=== PATIENT | male | born 1985 ===

== ENCOUNTER 2018-02-15 18:57 | Emergency (ER) | payer SELFPAY ==
[2018-02-15 19:20] VITALS: BP 131/86
--- NOTE | 2018-02-15 19:39 | Emergency Department Report ---
ED ENT HPI - General Chief complaint: Dental/Oral Stated complaint: FACE SWOLLEN Time Seen by Provider: 02/15/18 19:34 Source: patient Mode of arrival: Ambulatory Limitations: No Limitations - History of Present Illness Initial comments: This is a 32-year-old male nontoxic, well nourished in appearance, no acute signs of distress presents to the ED with c/o of left lower toothache 5 weeks. Patient denies following up with a dentist. Patient describes toothache as aching level of 8 out of 10. Patient stated has some facial swelling to left mandible. Patient denies any numbness, tingling, fever, chills, headache, stiff neck, abdominal pain, chest pain, shortness of breath. Patient denies any drug allergies or significant past medical history. MD complaint: tooth pain -: week(s) (5) Location: tooth # 1 - pain here Severity: mild Severity scale (0 -10): 8 Quality: aching Consistency: constant Improves with: none Worsens with: none Context- Dental: history of dental caries, poor dental care Associated Symptoms: gum swelling, toothache. denies: fever, cough, pain with swallowing, sore throat, tinnitus, hearing loss, discharge from ear, rhinorrhea - Related Data Previous Rx's Medication Instructions Recorded Last Taken Type Acetaminophen/Codeine [Tylenol 1 tab PO Q6H PRN #12 tab 02/15/18 Unknown Rx /Codeine # 3 tab] Chlorhexidine Mouthwash [Peridex] 15 ml MM BID #1 bottle 02/15/18 Unknown Rx Clindamycin [Clindamycin CAP] 300 mg PO Q6H 7 Days capsule 02/15/18 Unknown Rx Allergies Allergy/AdvReac Type Severity Reaction Status Date / Time No Known Allergies Allergy Unverified 02/15/18 19:20 ED Dental HPI - General Chief complaint: Dental/Oral Stated complaint: FACE SWOLLEN Time Seen by Provider: 02/15/18 19:34 Source: patient Mode of arrival: Ambulatory Limitations: No Limitations - Related Data Previous Rx's Medication Instructions Recorded Last Taken Type Acetaminophen/Codeine [Tylenol 1 tab PO Q6H PRN #12 tab 02/15/18 Unknown Rx /Codeine # 3 tab] Chlorhexidine Mouthwash [Peridex] 15 ml MM BID #1 bottle 02/15/18 Unknown Rx Clindamycin [Clindamycin CAP] 300 mg PO Q6H 7 Days capsule 02/15/18 Unknown Rx Allergies Allergy/AdvReac Type Severity Reaction Status Date / Time No Known Allergies Allergy Unverified 02/15/18 19:20 ED Review of Systems ROS: Stated complaint: FACE SWOLLEN Other details as noted in HPI Constitutional: denies: chills, fever Eyes: denies: eye pain, eye discharge, vision change ENT: dental pain. denies: ear pain, throat pain Respiratory: denies: cough, shortness of breath, wheezing Cardiovascular: denies: chest pain, palpitations Endocrine: no symptoms reported Gastrointestinal: denies: abdominal pain, nausea, diarrhea Genitourinary: denies: urgency, dysuria Musculoskeletal: denies: back pain, joint swelling, arthralgia Skin: denies: rash, lesions Neurological: denies: headache, weakness, paresthesias Psychiatric: denies: anxiety, depression Hematological/Lymphatic: denies: easy bleeding, easy bruising ED Past Medical Hx - Past Medical History Previous Medical History?: No - Surgical History Additional Surgical History: left hand - Social History Smoking Status: Current Every Day Smoker Substance Use Type: None - Medications Home Medications: Home Medications Medication Instructions Recorded Confirmed Last Taken Type Acetaminophen/Codeine [Tylenol 1 tab PO Q6H PRN #12 tab 02/15/18 Unknown Rx /Codeine # 3 tab] Chlorhexidine Mouthwash [Peridex] 15 ml MM BID #1 bottle 02/15/18 Unknown Rx Clindamycin [Clindamycin CAP] 300 mg PO Q6H 7 Days capsule 02/15/18 Unknown Rx ED Physical Exam - General Limitations: No Limitations General appearance: alert, in no apparent distress - Head Head exam: Present: atraumatic, normocephalic - Eye Eye exam: Present: normal appearance - ENT ENT exam: Present: mucous membranes moist, TM's normal bilaterally - Expanded ENT Exam Expanded Ear exam: Present: normal external inspection Mouth exam: Present: normal external inspection, tongue normal. Absent: drooling, trismus, muffled voice, laceration Teeth exam: Present: dental caries, fractured tooth #, dental tenderness #, gingival enlargement, other (left lower mandible slight swelling with no indruation. Tender to touch. No pus or drainge.) Throat exam: Positive: normal inspection, other (Uvula midline.). Negative: tonsillar erythema, tonsillomegaly, tonsillar exudate, R peritonsillar mass, L peritonsillar mass - Neck Neck exam: Present: normal inspection, full ROM. Absent: tenderness, meningismus, lymphadenopathy - Respiratory Respiratory exam: Present: normal lung sounds bilaterally. Absent: respiratory distress - Cardiovascular Cardiovascular Exam: Present: regular rate, normal rhythm. Absent: systolic murmur, diastolic murmur, rubs, gallop - GI/Abdominal GI/Abdominal exam: Present: soft, normal bowel sounds - Rectal Rectal exam: Present: deferred - Extremities Exam Extremities exam: Present: normal inspection - Back Exam Back exam: Present: normal inspection - Neurological Exam Neurological exam: Present: alert, oriented X3 - Psychiatric Psychiatric exam: Present: normal affect, normal mood - Skin Skin exam: Present: warm, dry, intact, normal color. Absent: rash ED Course Vital Signs 02/15/18 19:17 Temperature 98.8 F Pulse Rate 71 Respiratory 18 Rate Blood Pressure 131/86 O2 Sat by Pulse 97 Oximetry - Reevaluation(s) Reevaluation #1: 02/15/18 19:46 Patient is speaking in full sentences with no signs of distress noted. ED Medical Decision Making - Medical Decision Making This is a 32-year-old male that presents with gingivitis and dental caries. Patient is stable and was examined by me. There is slight swelling to the left lower mandible. I used 18-gauge hypo-with 10 mL syringe and try to aspirate in the right gingival area to make sure this was an abscess and no prominent drainage has been noted. I did give patient clindamycin 600 mg IM in the ED and patient is discharged with clindamycin. He had strict instructions to follow-up with oral maxillary surgeon in 24 hours or if symptoms would worsen to return to emergency room as was possible. Patient is discharged with Tylenol with Codeine, Peridex and Clinda. Patient was instructed not to operate any machinery when taking Tylenol with codeine due to drowsiness. At time of discharge, the patient does not seem toxic or ill in appearance. No acute signs of distress noted. Patient agrees to discharge treatment plan of care. No further questions noted by the patient. Critical care attestation.: If time is entered above; I have spent that time in minutes in the direct care of this critically ill patient, excluding procedure time. ED Disposition Clinical Impression: Dental caries, Gingivitis Disposition: TO HOME OR SELFCARE Is pt being admited?: No Does the pt Need Aspirin: No Condition: Stable Instructions: Dental Caries (ED), Dental Abscess (ED), Gingivitis (ED), Acetaminophen/Codeine (By mouth) Additional Instructions: Follow-up with a oral maxillary surgeon in 24 hours or if symptoms worsen and continue return to emergency room as soon as possible. Do not operate any machinery while taking Tylenol with codeine as this may cause drowsiness. [facility] Address: [id number], [place] [address] Hours: Friday Closed Friday 8AM1PM, 25PM Friday 8AM1PM, 25Friday 8AM1PM, 25PM 8AM1PM, 25PM Friday 7AM2PM Friday Closed Prescriptions: Acetaminophen/Codeine [Tylenol /Codeine # 3 tab] 1 tab PO Q6H PRN #12 tab PRN Reason: Pain , Severe (7-10) Chlorhexidine Mouthwash [Peridex] 15 ml MM BID #1 bottle Clindamycin [Clindamycin CAP] 300 mg PO Q6H 7 Days capsule Referrals: PRIMARY MD JUAN [Referring] - 3-5 Days DEBI WHITTAKER MD [Staff Physician] - 3-5 Days [facility] [Outside] - 3-5 Days Forms: Work/School Release Form(ED)
[2018-02-15] MEDS ORDERED: TYLENOL #3 PO ONE (19:45)
[2018-02-15] MEDS ORDERED: CLEOCIN IM ONE (19:45)
== END 2018-02-15 20:25 | disposition home or self-care (01) ==
LOC: ED 18:57
DX: K02.9 Dental caries, unspecified (principal); K05.00 Acute gingivitis, plaque induced; F17.200 Nicotine dependence, unspecified, uncomplicated
CPT/HCPCS: 96372; 99282